=== PATIENT | female | born 1985 | race African-American/Black ===

== ENCOUNTER 2016-08-31 03:03 | Emergency (ER) | payer MEDICAID ==
[~2016-08-31] VITALS: Ht 167.6 cm; Wt 109.0 kg
[~2016-08-31 03:03] MED LIST: AMLO5TAB4 PO
[2016-08-31] MEDS ORDERED: KETOROLAC 60MG/2ML VIAL IM STA (05:29)
[2016-08-31] MEDS ORDERED: ONDANSETRON 4MG ODT PO STA (05:29)
[2016-08-31 05:56] LABS: BASOPHILS % 0.7 % (0.0-2.0); EOSINOPHILS % 2.7 % (0.0-5.0); HEMATOCRIT. 29.4 % (36.0-48.0); HEMOGLOBIN. 8.9 g/dL (12.0-16.0); LYMPHOCYTES % 51.4 % (20.0-50.0); MEAN CORPUSCULAR HEMOGLOBIN 19.1 pg (28.0-32.0); MEAN CORPUSCULAR VOLUME 63.2 fL (81.0-99.0); MEAN PLATELET VOLUME 8.4 fl (7.4-10.4); NEUTROPHILS % 38.2 % (40.0-76.0); PLATELET 187 x1000/uL (130-400); RED BLOOD CELL COUNT 4.65 mill/uL (4.2-5.4); RED CELL DISTRIBUTION WIDTH 20.9 % (11.6-14.6)
[2016-08-31 06:05] LABS: CARBON DIOXIDE 30 mEq/L (21-32); CHLORIDE 100 mEq/L (98-107); ETHANOL BLOOD 282 mg/dL
[2016-08-31] MEDS ORDERED: SODIUM CHLORIDE 0.9% 1,000 ML IV ONE (06:38)
[2016-08-31] MEDS ORDERED: POTASSIUM CHLORIDE 20MEQ TABLET SR PO ONE (07:00)
[2016-08-31 07:34] VITALS: BP 151/81
[2016-08-31 08:47] LABS: CLARITY URINE CLEAR (CLEAR); COLOR URINE YELLOW (YELLOW); GLUCOSE URINE NEGATIVE (NEGATIVE); KETONES URINE NEGATIVE (NEGATIVE); LEUKOCYTE ESTERASE URINE NEGATIVE (NEGATIVE); NITRITE URINE NEGATIVE (NEGATIVE); OCCULT BLOOD URINE TRACE (NEGATIVE); PH URINE 6.5 (4.5-8.0); PROTEIN URINE 3+ (NEGATIVE); SPECIFIC GRAVITY URINE 1.013 (1.005-1.030)
[2016-08-31 09:18] LABS: *AMPHETAMINES SCREEN URINE NEGATIVE (NEGATIVE); *BARBITURATES SCREEN URINE NEGATIVE (NEGATIVE); *BENZODIAZEPINES SCREEN URINE NEGATIVE (NEGATIVE); *COCAINE SCREEN URINE NEGATIVE (NEGATIVE); CANNABINOID URINE SCREEN NEGATIVE (NEGATIVE); METHADONE URINE SCREEN NEGATIVE (NEGATIVE); OPIATES URINE SCREEN NEGATIVE (NEGATIVE); PHENCYCLIDINE URINE SCREEN NEGATIVE (NEGATIVE)
== END 2016-08-31 09:22 | disposition home or self-care (01) ==
LOC: ER 04:35
DX: R07.89 Other chest pain (principal); F10.129 Alcohol abuse with intoxication, unspecified; I10 Essential (primary) hypertension
CPT/HCPCS: 36415; 71010; 80053; 80305; 81001; 85025; 93005; 96360; 96361; 96372; 99285; G0482; J1885; Q0162; Z7610; J7030

== ENCOUNTER 2016-12-30 20:53 | Inpatient (IN) | payer MEDICAID ==
[~2016-12-30] VITALS: Ht 172.7 cm; Wt 124.3 kg
[2016-12-31] MEDS ORDERED: ONDANSETRON HCL 4MG/2ML VIAL IV STA (00:45)
[2016-12-31] MEDS ORDERED: MORPHINE SULFATE 4 MG/ML CPJ (NOT FOR IM USE) IV STA (00:45)
[2016-12-31] MEDS ORDERED: SODIUM CHLORIDE 0.9% 1,000 ML IV ONE ×2 (00:45→03:36)
[2016-12-31 01:03] LABS: EOSINOPHILS % 0.4 % (0.0-5.0); HEMATOCRIT. 28.5 % (36.0-48.0); HEMOGLOBIN. 8.8 g/dL (12.0-16.0); LYMPHOCYTES % 16.6 % (20.0-50.0); MEAN CORPUSCULAR HEMOGLOBIN 22.9 pg (28.0-32.0); MEAN PLATELET VOLUME 7.3 fl (7.4-10.4); MONOCYTES % 5.6 % (2.0-8.0); NEUTROPHILS % 76.4 % (40.0-76.0); PLATELET 310 x1000/uL (130-400); RED BLOOD CELL COUNT 3.86 mill/uL (4.2-5.4); RED CELL DISTRIBUTION WIDTH 20.1 % (11.6-14.6)
[2016-12-31 01:09] LABS: CHLORIDE 99 mEq/L (98-107)
[2016-12-31 01:10] LABS: PROTHROMBIN TIME 10.7 sec (9.4-11.6)
[2016-12-31 01:17] LABS: CARBON DIOXIDE 24 mEq/L (21-32)
[2016-12-31 01:29] LABS: HCG SCREEN NEGATIVE
[2016-12-31 02:16] LABS: CLARITY URINE CLOUDY (CLEAR); COLOR URINE YELLOW (YELLOW); GLUCOSE URINE NEGATIVE (NEGATIVE); KETONES URINE 3+ (NEGATIVE); LEUKOCYTE ESTERASE URINE NEGATIVE (NEGATIVE); NITRITE URINE NEGATIVE (NEGATIVE); OCCULT BLOOD URINE 3+ (NEGATIVE); PH URINE 6.5 (4.5-8.0); PROTEIN URINE 3+ (NEGATIVE); SPECIFIC GRAVITY URINE 1.016 (1.005-1.030)
[2016-12-31] MEDS ORDERED: MORPHINE SULFATE 4 MG/ML CPJ (NOT FOR IM USE) IV SCH (03:36)
[2016-12-31] MEDS ORDERED: AZITHROMYCIN 500 MG TABLET PO SCH (03:45)
[2016-12-31] MEDS ORDERED: POTASSIUM CHLORIDE INJ 40 MEQ in DEXT 5% WATER 250 ML IV SCH (03:45)
[2016-12-31] MEDS ORDERED: CEFTRIAXONE SODIUM 250 MG/VIAL IM ONE (03:45)
[2016-12-31] MEDS ORDERED: CEFTRIAXONE 1 G PREMIX 50 ML IV SCH ×2 (03:45→09:00)
[2016-12-31] MEDS ORDERED: ONDANSETRON HCL 4MG/2ML VIAL IV SCH (03:45)
[2016-12-31] MEDS ORDERED: IOHEXOL-300 100 ML BOTTLE ONE (06:00)
[2016-12-31] MEDS ORDERED: SODIUM CHLORIDE 0.9% 10ML VIAL ONE (06:00)
[2016-12-31] MEDS ORDERED: LORAZEPAM 2MG/ML CPJ IV PRN (07:30)
[2016-12-31] MEDS ORDERED: IPRATROPIUM/ALBUTEROL 0.5-3(2.5)MG/3ML NEB INH PRN (07:30)
[2016-12-31] MEDS ORDERED: MAGNESIUM/ALUMINUM HYDROXIDE/SIMETHICONE 30ML UDC PO PRN (07:30)
[2016-12-31] MEDS ORDERED: ACETAMINOPHEN 325MG TABLET PO PRN (07:30)
[2016-12-31] MEDS ORDERED: GUAIFENESIN 200MG/10ML SUGAR FREE UDC PO PRN (07:30)
[2016-12-31] MEDS ORDERED: ZOLPIDEM TARTRATE 5MG TABLET PO PRN (07:30)
[2016-12-31] MEDS ORDERED: NA PHOS,M-B/NA PHOS,DI-BA ENEMA 118ML PR PRN (07:30)
[2016-12-31] MEDS ORDERED: DOCUSATE SODIUM 100MG CAPSULE PO PRN (07:30)
[2016-12-31] MEDS ORDERED: CLONIDINE 0.1MG TABLET PO PRN (07:30)
[2016-12-31] MEDS ORDERED: ONDANSETRON HCL 4MG/2ML VIAL IV PRN (07:30)
[2016-12-31] MEDS ORDERED: DIPHENHYDRAMINE 50MG/ML VIAL IV PRN (07:30)
[2016-12-31 08:00] VITALS: BP 150/104
[2016-12-31] MEDS ORDERED: HYDR25TA PO (09:13)
[2016-12-31] MEDS: PANTOPRAZOLE SODIUM 40 MG/VIAL IV SCH (09:53)
[2016-12-31] MEDS: METOPROLOL TARTRATE 25MG TABLET PO SCH ×2 (09:54→20:30)
[2016-12-31 10:17] LABS: *AMPHETAMINES SCREEN URINE NEGATIVE (NEGATIVE); *BARBITURATES SCREEN URINE NEGATIVE (NEGATIVE); *BENZODIAZEPINES SCREEN URINE NEGATIVE (NEGATIVE); *COCAINE SCREEN URINE NEGATIVE (NEGATIVE); CANNABINOID URINE SCREEN PRESUMTIVE POSITIVE (NEGATIVE); METHADONE URINE SCREEN NEGATIVE (NEGATIVE); OPIATES URINE SCREEN PRESUMTIVE POSITIVE (NEGATIVE); PHENCYCLIDINE URINE SCREEN NEGATIVE (NEGATIVE)
[2016-12-31 10:23] VITALS: BP 153/105
[2016-12-31] MEDS: KETOROLAC 15MG/ML VIAL IV PRN ×3 (11:58→23:48)
[2016-12-31 12:00] VITALS: BP 176/110
[2016-12-31] MEDS: SODIUM CHLORIDE 0.9% 1,000 ML IV SCH ×2 (12:02→20:52)
[2016-12-31 16:00] VITALS: BP 140/96
[2016-12-31 20:00] VITALS: BP 136/88
[2016-12-31 23:58] VITALS: BP 112/60
[2017-01-01 04:00] VITALS: BP 137/84
[2017-01-01] MEDS: SODIUM CHLORIDE 0.9% 1,000 ML IV SCH (05:43)
[2017-01-01] MEDS ORDERED: CEFTRIAXONE 1 G PREMIX 50 ML IV SCH (06:00)
[2017-01-01 07:24] LABS: BASOPHILS % 0.4 % (0.0-2.0); EOSINOPHILS % 0.5 % (0.0-5.0); HEMATOCRIT. 25.4 % (36.0-48.0); HEMOGLOBIN. 7.9 g/dL (12.0-16.0); LYMPHOCYTES % 20.7 % (20.0-50.0); MEAN CORPUSCULAR HEMOGLOBIN 23.4 pg (28.0-32.0); MEAN CORPUSCULAR VOLUME 75.3 fL (81.0-99.0); MEAN PLATELET VOLUME 7.9 fl (7.4-10.4); MONOCYTES % 4.8 % (2.0-8.0); NEUTROPHILS % 73.6 % (40.0-76.0); PLATELET 244 x1000/uL (130-400); RED BLOOD CELL COUNT 3.37 mill/uL (4.2-5.4); RED CELL DISTRIBUTION WIDTH 20.1 % (11.6-14.6)
[2017-01-01 08:00] VITALS: BP 151/85
[2017-01-01 08:33] LABS: CARBON DIOXIDE 27 mEq/L (21-32); CHLORIDE 102 mEq/L (98-107)
[2017-01-01] MEDS: PANTOPRAZOLE SODIUM 40 MG/VIAL IV SCH (08:48)
[2017-01-01] MEDS: METOPROLOL TARTRATE 25MG TABLET PO SCH (08:48)
[2017-01-01 08:58] VITALS: BP 151/85
[2017-01-01] MEDS: KETOROLAC 15MG/ML VIAL IV PRN (08:58)
[2017-02-08] MEDS ORDERED: FERR325T6 PO (08:14)
== END 2017-01-01 11:09 | disposition home or self-care (01) | DRG 241 ==
LOC: ER 21:07 → 8WST 12-31 03:37 → EDBEDREQ 12-31 03:42 → EDBEDREQTM 12-31 03:42 → EDBEDREQSVC 12-31 03:42 → ENRESERV 12-31 05:44
PROVIDERS: ADMIT Internal Medicine; ATTEND Internal Medicine
DX: K29.70 Gastritis, unspecified, without bleeding (principal); E44.1 Mild protein-calorie malnutrition; I10 Essential (primary) hypertension; N39.0 Urinary tract infection, site not specified; E66.01 Morbid (severe) obesity due to excess calories; E87.6 Hypokalemia; F12.10 Cannabis abuse, uncomplicated; Z79.899 Other long term (current) drug therapy; Z68.41 Body mass index [BMI] 40.0-44.9, adult
CPT/HCPCS: 36415; 74177; 80053; 80061; 80305; 81001; 81025; 83036; 83690; 84703; 85025; 85610; 93005; 93970; 96361; 96365; 96366; 96375; 96376; 99285; A4216; C9113; J0696; J1885; J2270; J2405; J3480; J7030; J7040; J7060; Q9967

== ENCOUNTER 2022-05-23 13:46 | Inpatient (IN) | payer MEDICAID, OTHER ==
[~2022-05-23] VITALS: Ht 170.2 cm; Wt 122.1 kg
[~2022-05-23 13:46] MED LIST changes: +AMLO10TA4 PO; -AMLO5TAB4 PO; +FERR134T2 PO; +FERR325T6 PO; +HYDR25TA PO; +KEPP500 PO; +LABE200T9 PO; +OXYC-662 MT
[2022-05-23] MEDS ORDERED: NITROGLYCERIN 0.4MG TABLET SL SL PRN (17:45)
[2022-05-23 18:25] LABS: BASOPHILS % 0.5 % (0.0-2.0); EOSINOPHILS % 0.5 % (0.0-5.0); LYMPHOCYTES % 17.2 % (20.0-50.0); MEAN CORPUSCULAR HEMOGLOBIN 30.7 pg (28.0-32.0); MEAN CORPUSCULAR VOLUME 93.3 fL (81.0-99.0); MEAN PLATELET VOLUME 6.2 fl (7.4-10.4); MONOCYTES % 4.5 % (2.0-8.0); NEUTROPHILS % 77.3 % (40.0-76.0); PLATELET 280 x1000/uL (130-400); RED BLOOD CELL COUNT 1.49 mill/uL (4.2-5.4)
[2022-05-23 18:30] LABS: HEMATOCRIT. 13.9 % (36.0-48.0); HEMOGLOBIN. 4.6 g/dL (12.0-16.0)
[2022-05-23 18:32] LABS: CHLORIDE 105 mEq/L (98-107)
[2022-05-23 18:43] LABS: HCG SCREEN NEGATIVE
[2022-05-23 18:45] LABS: D-DIMER 0.92 mg/L FEU (<0.50); INR 0.9; PARTIAL THROMBOPLASTIN TIME < 21.0 sec (23.4-31.0)
[2022-05-23] MEDS ORDERED: ONDANSETRON HCL 4MG/2ML INJ IV STA (18:52)
[2022-05-23] MEDS ORDERED: MORPHINE SULFATE 4 MG/ML CPJ (NOT FOR IM USE) IV STA (18:52)
[2022-05-23] MEDS ORDERED: CLONIDINE 0.2MG TABLET PO ONE (19:00)
[2022-05-24] VITALS (14 sets, daily range): BP systolic 107–177; BP diastolic 55–90
[2022-05-24] MEDS ORDERED: MORPHINE SULFATE 2 MG/ML CPJ (NOT FOR IM USE) IV NR (00:45)
[2022-05-24 02:52] LABS: BASOPHILS % 0.3 % (0.0-2.0); EOSINOPHILS % 0.6 % (0.0-5.0); LYMPHOCYTES % 20.6 % (20.0-50.0); MEAN CORPUSCULAR HEMOGLOBIN 30.9 pg (28.0-32.0); MEAN CORPUSCULAR VOLUME 93.9 fL (81.0-99.0); MEAN PLATELET VOLUME 6.6 fl (7.4-10.4); MONOCYTES % 4.1 % (2.0-8.0); NEUTROPHILS % 74.4 % (40.0-76.0); PLATELET 253 x1000/uL (130-400); RED BLOOD CELL COUNT 1.95 mill/uL (4.2-5.4); RED CELL DISTRIBUTION WIDTH 16.9 % (11.6-14.6)
[2022-05-24 02:58] LABS: HEMATOCRIT. 18.3 % (36.0-48.0)
[2022-05-24] MEDS ORDERED: ACETAMINOPHEN 325MG TABLET PO PRN (05:30)
[2022-05-24] MEDS: PANTOPRAZOLE 40MG DR TABLET PO SCH (08:34)
[2022-05-24] MEDS: IRON SUCROSE COMPLEX 100 MG/5 ML ML IV SCH (08:34)
[2022-05-24 09:33] LABS: BASOPHILS % 0.4 % (0.0-2.0); EOSINOPHILS % 0.4 % (0.0-5.0); LYMPHOCYTES % 16.6 % (20.0-50.0); MEAN CORPUSCULAR HEMOGLOBIN 30.6 pg (28.0-32.0); MEAN CORPUSCULAR VOLUME 91.5 fL (81.0-99.0); MEAN PLATELET VOLUME 6.7 fl (7.4-10.4); MONOCYTES % 3.3 % (2.0-8.0); NEUTROPHILS % 79.3 % (40.0-76.0); PLATELET 231 x1000/uL (130-400); RED BLOOD CELL COUNT 2.18 mill/uL (4.2-5.4); RED CELL DISTRIBUTION WIDTH 16.7 % (11.6-14.6)
[2022-05-24 09:36] LABS: HEMATOCRIT. 19.9 % (36.0-48.0); HEMOGLOBIN. 6.7 g/dL (12.0-16.0)
[2022-05-24] MEDS ORDERED: NALOXONE HCL 0.4MG/ML VIAL IV PRN (12:45)
[2022-05-24] MEDS: TRAMADOL 50MG TABLET PO PRN ×2 (13:03→18:45)
[2022-05-24 23:39] LABS: HEMATOCRIT 22.5 % (36.0-48.0); HEMOGLOBIN 7.7 g/dL (12.0-16.0)
[2022-05-25] VITALS: BP 162/108
[2022-05-25] MEDS: TRAMADOL 50MG TABLET PO PRN ×4 (00:05→21:17)
[2022-05-25] MEDS: HYDRALAZINE HCL 50MG TABLET PO SCH ×3 (00:36→13:09)
[2022-05-25 04:00] VITALS: BP 149/80
[2022-05-25 08:00] VITALS: BP 157/90
[2022-05-25] MEDS: PANTOPRAZOLE 40MG DR TABLET PO SCH (08:49)
[2022-05-25] MEDS: IRON SUCROSE COMPLEX 100 MG/5 ML ML IV SCH (08:49)
[2022-05-25 11:16] LABS: CLARITY URINE CLEAR (CLEAR); COLOR URINE YELLOW (YELLOW); KETONES URINE NEGATIVE (NEGATIVE); LEUKOCYTE ESTERASE URINE NEGATIVE (NEGATIVE); NITRITE URINE NEGATIVE (NEGATIVE); OCCULT BLOOD URINE 3+ (NEGATIVE); PH URINE 5.5 (4.5-8.0); PROTEIN URINE NEGATIVE (NEGATIVE); SPECIFIC GRAVITY URINE 1.011 (1.005-1.030); UROBILINOGEN URINE 0.2 E.U./dL (0.2-1.0)
[2022-05-25 12:00] VITALS: BP 150/81
[2022-05-25 16:00] VITALS: BP 187/100
[2022-05-25] MEDS ORDERED: ESTROGENS,CONJUGATED 25MG/VIAL IV NR (17:00)
[2022-05-25 17:44] LABS: HEMATOCRIT 24.3 % (36.0-48.0); HEMOGLOBIN 8.1 g/dL (12.0-16.0)
[2022-05-25 21:00] VITALS: BP 172/94
[2022-05-25] MEDS: HYDRALAZINE HCL 100MG TABLET PO SCH (21:16)
[2022-05-25] MEDS: DOCUSATE SODIUM 250MG CAPSULE PO SCH (21:41)
[2022-05-26] VITALS: BP 134/53
[2022-05-26 05:00] VITALS: BP 162/105
[2022-05-26] MEDS: HYDRALAZINE HCL 100MG TABLET PO SCH ×3 (05:13→20:54)
[2022-05-26] MEDS: TRAMADOL 50MG TABLET PO PRN ×3 (05:17→20:54)
[2022-05-26 07:49] VITALS: BP 155/98
[2022-05-26] MEDS: IRON SUCROSE COMPLEX 100 MG/5 ML ML IV SCH (09:08)
[2022-05-26] MEDS: PANTOPRAZOLE 40MG DR TABLET PO SCH (09:08)
[2022-05-26] MEDS: DOCUSATE SODIUM 250MG CAPSULE PO SCH ×2 (09:08→17:00)
[2022-05-26] MEDS ORDERED: HYDR100T26 PO (10:48)
[2022-05-26] MEDS ORDERED: ACETAMINOPHEN 325MG TABLET PO PRN (11:00)
[2022-05-26] MEDS: AMLODIPINE 10MG TABLET PO SCH (11:22)
[2022-05-26 12:00] VITALS: BP 182/90
[2022-05-26] MEDS: LABETALOL HCL 200MG TABLET PO SCH ×2 (13:28→20:54)
[2022-05-26] MEDS: ONDANSETRON HCL 4MG/2ML INJ IV PRN (14:48)
[2022-05-26 16:00] VITALS: BP 159/100
[2022-05-26] MEDS ORDERED: CLONIDINE 0.1MG TABLET PO NR (16:45)
[2022-05-26 20:00] VITALS: BP 166/91
[2022-05-26] MEDS ORDERED: LABETALOL HCL 200MG TABLET PO SCH (21:00)
[2022-05-26] MEDS: CLONIDINE 0.1MG TABLET PO PRN (23:53)
[2022-05-27] VITALS: BP 169/94
[2022-05-27] MEDS: TRAMADOL 50MG TABLET PO PRN ×2 (03:08→09:28)
[2022-05-27 04:00] VITALS: BP 164/101
[2022-05-27] MEDS: HYDRALAZINE HCL 100MG TABLET PO SCH ×2 (05:36→13:34)
[2022-05-27] MEDS: CLONIDINE 0.1MG TABLET PO PRN (05:37)
[2022-05-27] MEDS: ONDANSETRON HCL 4MG/2ML INJ IV PRN (05:37)
[2022-05-27 08:00] VITALS: BP 156/81
[2022-05-27] MEDS: DOCUSATE SODIUM 250MG CAPSULE PO SCH (09:19)
[2022-05-27] MEDS: LABETALOL HCL 200MG TABLET PO SCH (09:19)
[2022-05-27] MEDS: PANTOPRAZOLE 40MG DR TABLET PO SCH (09:19)
[2022-05-27] MEDS: AMLODIPINE 10MG TABLET PO SCH (09:20)
[2022-05-27] MEDS ORDERED: FERR134T2 PO (11:51)
[2022-05-27 12:00] VITALS: BP 159/95
[2022-05-27] MEDS ORDERED: HYDR-4001 MT (14:55)
[2022-05-27 15:20] VITALS: BP 159/95
[2022-05-27 17:05] LABS: BASOPHILS % 0.3 % (0.0-2.0); EOSINOPHILS % 0.9 % (0.0-5.0); HEMOGLOBIN. 8.1 g/dL (12.0-16.0); LYMPHOCYTES % 8.8 % (20.0-50.0); MEAN CORPUSCULAR HEMOGLOBIN 29.8 pg (28.0-32.0); MEAN CORPUSCULAR VOLUME 91.8 fL (81.0-99.0); MEAN PLATELET VOLUME 6.7 fl (7.4-10.4); MONOCYTES % 3.4 % (2.0-8.0); NEUTROPHILS % 86.6 % (40.0-76.0); PLATELET 188 x1000/uL (130-400); RED BLOOD CELL COUNT 2.72 mill/uL (4.2-5.4); RED CELL DISTRIBUTION WIDTH 17.2 % (11.6-14.6)
[2022-05-27 17:14] LABS: CHLORIDE 97 mEq/L (98-107)
== END 2022-05-27 18:20 | disposition home or self-care (01) | DRG 532 ==
LOC: ER 13:46 → MICUSO 21:24 → 7EST 05-24 01:04
PROVIDERS: ADMIT Internal Medicine; ATTEND Internal Medicine
PROC: 30233N1 Transfusion of Nonautologous Red Blood Cells into Peripheral Vein, Percutaneous Approach (ICD-10-PCS; principal; 2022-05-23)
DX: N92.0 Excessive and frequent menstruation with regular cycle (principal); N17.0 Acute kidney failure with tubular necrosis; E44.0 Moderate protein-calorie malnutrition; D64.9 Anemia, unspecified; I10 Essential (primary) hypertension; I16.0 Hypertensive urgency; E66.9 Obesity, unspecified; G40.909 Epilepsy, unspecified, not intractable, without status epilepticus; Z68.41 Body mass index [BMI] 40.0-44.9, adult; D72.829 Elevated white blood cell count, unspecified; Z98.891 History of uterine scar from previous surgery
CPT/HCPCS: 36415; 71045; 78582; 80048; 80053; 81003; 83880; 84145; 84484; 84703; 85014; 85018; 85025; 85379; 86850; 86900; 86920; 93970; 99285; A9558; C1893; J1410; J2270; J2405; P9016

== ENCOUNTER 2023-01-16 16:23 | Emergency (ER) | payer MEDICAID, OTHER ==
[~2023-01-16] VITALS: Ht 170.2 cm; Wt 100.0 kg
[~2023-01-16 16:23] MED LIST changes: +GABA-532 PO; +HYDR-4001 MT; +HYDR100T26 PO; -HYDR25TA PO; -OXYC-662 MT
[2023-01-16 16:35] VITALS: O2SAT 99
[2023-01-16] MEDS ORDERED: HYDROCODONE/ACETAMINOPHEN 5/325MG TABLET PO ONE (21:30)
[2023-01-16 21:35] LABS: CHLORIDE 105 mEq/L (98-107); INDEX HEMOLYSI 1 (1-3); INDEX ICTERIC 1 (1-4); INDEX LIPEMIC 1 (1-3); POTASSIUM 3.5 mEq/L (3.5-5.1); SODIUM 137 mEq/L (136-145)
[2023-01-16 21:44] LABS: BASOPHILS % 0.5 % (0.0-2.0); EOSINOPHILS % 0.5 % (0.0-5.0); HEMATOCRIT. 29.7 % (36.0-48.0); HEMOGLOBIN. 9.8 g/dL (12.0-16.0); LYMPHOCYTES % 17.7 % (20.0-50.0); MEAN CORPUSCULAR HEMOGLOBIN 30.3 pg (28.0-32.0); MEAN CORPUSCULAR HGB CONC 33.2 g/dL (31.0-37.0); MEAN CORPUSCULAR VOLUME 91.3 fL (81.0-99.0); MEAN PLATELET VOLUME 7.8 fl (7.4-10.4); MONOCYTES % 5.6 % (2.0-8.0); NEUTROPHILS % 75.7 % (40.0-76.0); PLATELET 168 x1000/uL (130-400); RED BLOOD CELL COUNT 3.25 mill/uL (4.2-5.4); RED CELL DISTRIBUTION WIDTH 19.7 % (11.6-14.6); WHITE BLOOD COUNT 13.6 x1000/uL (4.5-11.0)
[2023-01-16 21:45] LABS: ALANINE AMINOTRANSFERASE 33 IU/L (13-61); ALBUMIN 3.2 g/dL (3.4-5.0); ASPARTATE AMINOTRANSFERASE 73 IU/L (15-37); BILIRUBIN TOTAL 0.7 mg/dL (0.1-1.0); CALCIUM 8.6 mg/dL (8.5-10.1); CARBON DIOXIDE 23 mEq/L (21-32); CREATININE 2.1 mg/dL (0.6-1.3); GLUCOSE 93 mg/dL (70-105); PROTEIN TOTAL 7.8 g/dL (6.0-8.3); UREA NITROGEN BLOOD 26 mg/dL (7-21)
[2023-01-16] MEDS ORDERED: HYDROCODONE/ACETAMINOPHEN 5/325MG TABLET PO NR (23:45)
[2023-01-16] MEDS ORDERED: IBUP-2028 MT (23:53)
[2023-01-16] MEDS ORDERED: TOPUD MT (23:53)
[2023-01-17 00:46] VITALS: BP 145/98
[2023-01-17 00:47] VITALS: PULSE 98; RESP 18; TEMP 98.3
== END 2023-01-17 00:49 | disposition home or self-care (01) ==
LOC: ER 16:23
DX: I87.2 Venous insufficiency (chronic) (peripheral) (principal); M71.21 Synovial cyst of popliteal space [Baker], right knee; D64.9 Anemia, unspecified; I10 Essential (primary) hypertension; Z98.890 Other specified postprocedural states; Z79.899 Other long term (current) drug therapy
CPT/HCPCS: 36415; 73630; 80053; 81025; 85025; 93971; 99284

== ENCOUNTER 2023-11-17 20:18 | Inpatient (IN) | payer OTHER ==
[~2023-11-17] VITALS: Ht 172.7 cm; Wt 82.1 kg
[~2023-11-17 20:18] MED LIST changes: -FERR134T2 PO; -HYDR-4001 MT; -KEPP500 PO
[2023-11-17 21:46] LABS: CHLORIDE 106 mEq/L (98-107); POTASSIUM 3.7 mEq/L (3.5-5.1); SODIUM 137 mEq/L (136-145)
[2023-11-17 21:47] LABS: CALCIUM 9.2 mg/dL (8.7-10.4); CARBON DIOXIDE 22 mEq/L (21-32)
[2023-11-17 21:49] LABS: EOSINOPHILS % 0.2 % (0.0-5.0); LYMPHOCYTES % 8.4 % (20.0-50.0); MEAN CORPUSCULAR HGB CONC 32.6 g/dL (31.0-37.0); MEAN CORPUSCULAR VOLUME 101.4 fL (81.0-99.0); MEAN PLATELET VOLUME 8.7 fl (7.4-10.4); MONOCYTES % 4.3 % (2.0-8.0); NEUTROPHILS % 86.1 % (40.0-76.0); PLATELET 168 x1000/uL (130-400); RED BLOOD CELL COUNT 2.08 mill/uL (4.2-5.4); RED CELL DISTRIBUTION WIDTH 22.4 % (11.6-14.6); WHITE BLOOD COUNT 12.1 x1000/uL (4.5-11.0)
[2023-11-17 21:50] LABS: DIFFERENTIAL COMMENT 1
[2023-11-17 21:52] LABS: GLUCOSE 112 mg/dL (70-105); HEMOGLOBIN. 6.9 g/dL (12.0-16.0); UREA NITROGEN BLOOD 19 mg/dL (9-23)
[2023-11-17 21:53] LABS: ADD RBC MORPHOLOGY YES; HEMATOCRIT. 21.1 % (36.0-48.0); TROPONIN I HIGH SENSITIVITY 24 ng/L (3.0-34)
[2023-11-17 22:33] LABS: PLATELET ESTIMATE NORMAL
[2023-11-17 22:34] LABS: ANISOCYTOSIS 2+
[2023-11-17 22:35] LABS: HYPOCHROMASIA 1+
[2023-11-17] MEDS: ACETAMINOPHEN 1000MG/100ML 100 ML IV NR (23:12)
[2023-11-18] MEDS: MORPHINE SULFATE 4 MG/ML INJ (FOR IV/IM USE) IV ONE (01:17)
[2023-11-18] MEDS: SODIUM CHLORIDE 0.9% 500 ML IV ONE (02:20)
[2023-11-18 02:29] LABS: ALANINE AMINOTRANSFERASE 18 IU/L (10-49); ALBUMIN 3.7 g/dL (3.2-4.8); ASPARTATE AMINOTRANSFERASE 34 IU/L (<34); BILIRUBIN DIRECT 0.1 mg/dL (<=3.0); BILIRUBIN TOTAL 0.3 mg/dL (0.1-1.0); PROTEIN TOTAL 6.9 g/dL (6.0-8.3)
[2023-11-18] MEDS: LABETALOL HCL 200MG TABLET PO NR (02:31)
[2023-11-18] MEDS: DIPHENHYDRAMINE 50MG/ML VIAL IV ONE (03:59)
[2023-11-18] MEDS: KETOROLAC 15MG/ML VIAL IV ONE (05:36)
[2023-11-18] MEDS: ONDANSETRON HCL 4MG/2ML INJ IV ONE (05:36)
[2023-11-18 06:22] LABS: HEMATOCRIT 24.6 % (36.0-48.0)
[2023-11-18] MEDS: HYDRALAZINE 20MG/ML VIAL IV NR (08:50)
[2023-11-18] MEDS: HYDRALAZINE 20MG/ML VIAL IV ONE (08:51)
[2023-11-18] MEDS ORDERED: NALOXONE HCL 0.4MG/ML VIAL IV PRN (10:45)
[2023-11-18] MEDS: ONDANSETRON HCL 4MG/2ML INJ IV PRN (10:53)
[2023-11-18] MEDS: MORPHINE SULFATE 2 MG/ML INJ (NOT FOR IM USE) IV PRN ×2 (10:54→22:49)
[2023-11-18] MEDS ORDERED: ACETAMINOPHEN 325MG TABLET PO PRN (17:00)
[2023-11-18] MEDS ORDERED: CLONIDINE 0.1MG TABLET PO PRN (17:00)
[2023-11-18] MEDS ORDERED: CEFTRIAXONE 1GM/50ML 50 ML IV SCH (17:00)
[2023-11-18] MEDS ORDERED: ONDANSETRON HCL 4MG/2ML INJ IV PRN (17:00)
[2023-11-18] MEDS ORDERED: ZOLPIDEM TARTRATE 5MG TABLET PO PRN (17:00)
[2023-11-18] MEDS ORDERED: IPRATROPIUM/ALBUTEROL 0.5-3(2.5)MG/3ML NEB NEB PRN (17:00)
[2023-11-18] MEDS: SODIUM CHLORIDE 0.9% 1,000 ML IV SCH (17:27)
[2023-11-18] MEDS: GABAPENTIN 300MG CAPSULE PO SCH (17:28)
[2023-11-18] MEDS: PANTOPRAZOLE 40MG DR TABLET PO SCH (17:28)
[2023-11-18] MEDS: CEFTRIAXONE 1GM/50ML 50 ML IV SCH (17:28)
[2023-11-18] MEDS: LABETALOL HCL 200MG TABLET PO SCH (18:50)
[2023-11-18] MEDS: METRONIDAZOLE 500MG TABLET PO SCH (21:00)
[2023-11-18] MEDS: HYDRALAZINE HCL 100MG TABLET PO SCH (22:00)
[2023-11-18 22:24] LABS: CREATINE KINASE MB FRACTION 0.7 ng/mL (0.5-3.6)
[2023-11-18 23:53] VITALS: BP 130/80; PULSE 75; RESP 18; TEMP 36.8072
[2023-11-19] VITALS (10 sets, daily range): BP systolic 85–149; BP diastolic 42–80; PULSE 43–87; RESP 17–43; TEMP 36.114–37.11408; O2SAT 95–100
[2023-11-19 06:44] LABS: MEAN CORPUSCULAR HGB CONC 32.9 g/dL (31.0-37.0); MEAN CORPUSCULAR VOLUME 100.3 fL (81.0-99.0); MEAN PLATELET VOLUME 8.5 fl (7.4-10.4); PLATELET 112 x1000/uL (130-400); RED BLOOD CELL COUNT 1.98 mill/uL (4.2-5.4); RED CELL DISTRIBUTION WIDTH 22.3 % (11.6-14.6); WHITE BLOOD COUNT 7.5 x1000/uL (4.5-11.0)
[2023-11-19 06:50] LABS: CALCIUM 8.5 mg/dL (8.7-10.4); CHLORIDE 104 mEq/L (98-107); POTASSIUM 3.7 mEq/L (3.5-5.1); SODIUM 135 mEq/L (136-145)
[2023-11-19 06:51] LABS: CARBON DIOXIDE 25 mEq/L (21-32)
[2023-11-19 06:52] LABS: CREATINE KINASE MB FRACTION < 0.5 ng/mL (0.5-3.6); TROPONIN I HIGH SENSITIVITY 17 ng/L (3.0-34)
[2023-11-19 06:56] LABS: CREATININE 2.3 mg/dL (0.6-1.0); GLUCOSE 144 mg/dL (70-105); UREA NITROGEN BLOOD 24 mg/dL (9-23)
[2023-11-19 06:57] LABS: CREATINE KINASE 23 IU/L (34-145)
[2023-11-19 07:52] LABS: DIFFERENTIAL COMMENT 1
[2023-11-19 07:55] LABS: HEMATOCRIT. 19.8 % (36.0-48.0); HEMOGLOBIN. 6.5 g/dL (12.0-16.0)
[2023-11-19] MEDS: AMLODIPINE 10MG TABLET PO SCH (10:28)
[2023-11-19 10:40] LABS: CARBON DIOXIDE 23 mEq/L (21-32); CHLORIDE 105 mEq/L (98-107); POTASSIUM 4.3 mEq/L (3.5-5.1); SODIUM 134 mEq/L (136-145)
[2023-11-19 10:41] LABS: CALCIUM 8.3 mg/dL (8.7-10.4)
[2023-11-19 10:46] LABS: CREATININE 2.6 mg/dL (0.6-1.0); GLUCOSE 108 mg/dL (70-105); UREA NITROGEN BLOOD 22 mg/dL (9-23)
[2023-11-19 10:47] LABS: ALANINE AMINOTRANSFERASE 12 IU/L (10-49)
[2023-11-19 10:48] LABS: ALBUMIN 3.2 g/dL (3.2-4.8); ASPARTATE AMINOTRANSFERASE 19 IU/L (<34); BILIRUBIN TOTAL 0.2 mg/dL (0.1-1.0); PROTEIN TOTAL 5.9 g/dL (6.0-8.3)
[2023-11-19] MEDS: DIPHENHYDRAMINE 50MG/ML VIAL IV NR (11:40)
[2023-11-19 16:26] LABS: PLATELET ESTIMATE NORMAL
[2023-11-19 17:53] LABS: EOSINOPHILS % 0.6 % (0.0-5.0); HEMATOCRIT. 23.6 % (36.0-48.0); HEMOGLOBIN. 7.7 g/dL (12.0-16.0); LYMPHOCYTES % 13.4 % (20.0-50.0); MEAN CORPUSCULAR HEMOGLOBIN 32.2 pg (28.0-32.0); MEAN CORPUSCULAR HGB CONC 32.6 g/dL (31.0-37.0); MEAN CORPUSCULAR VOLUME 98.9 fL (81.0-99.0); MEAN PLATELET VOLUME 8.1 fl (7.4-10.4); MONOCYTES % 6.6 % (2.0-8.0); NEUTROPHILS % 78.4 % (40.0-76.0); PLATELET 104 x1000/uL (130-400); RED BLOOD CELL COUNT 2.39 mill/uL (4.2-5.4); RED CELL DISTRIBUTION WIDTH 23.1 % (11.6-14.6); WHITE BLOOD COUNT 10.2 x1000/uL (4.5-11.0)
[2023-11-19 17:56] LABS: DIFFERENTIAL COMMENT 1
[2023-11-19 21:01] LABS: CLARITY URINE CLOUDY (CLEAR); COLOR URINE ORANGE (YELLOW)
[2023-11-19 21:02] LABS: GLUCOSE URINE NEGATIVE (NEGATIVE); KETONES URINE NEGATIVE (NEGATIVE); LEUKOCYTE ESTERASE URINE 2+ (NEGATIVE); NITRITE URINE NEGATIVE (NEGATIVE); OCCULT BLOOD URINE 3+ (NEGATIVE); PROTEIN URINE 2+ (NEGATIVE); UROBILINOGEN URINE 0.2 E.U./dL (0.2-1.0)
[2023-11-19 21:15] LABS: BACTERIA URINE 3+; RBC URINE TNTC /hpf (0-2); SQUAMOUS EPITHELIAL CELL URINE 1+ /lpf (RARE/1+)
[2023-11-19 21:17] LABS: WBC URINE 25-50 /hpf (0-2)
[2023-11-20] VITALS: BP 120/70; PULSE 74; RESP 20; TEMP 36.28068; O2SAT 98
[2023-11-20 04:00] VITALS: BP 132/82; PULSE 83; RESP 18; TEMP 36.33624; O2SAT 96
[2023-11-20 06:56] LABS: BASOPHILS % 0.3 % (0.0-2.0); EOSINOPHILS % 0.7 % (0.0-5.0); HEMATOCRIT. 24.2 % (36.0-48.0); LYMPHOCYTES % 16.9 % (20.0-50.0); MEAN CORPUSCULAR HEMOGLOBIN 32.6 pg (28.0-32.0); MEAN CORPUSCULAR HGB CONC 33.1 g/dL (31.0-37.0); MEAN CORPUSCULAR VOLUME 98.2 fL (81.0-99.0); MEAN PLATELET VOLUME 8.4 fl (7.4-10.4); NEUTROPHILS % 76.1 % (40.0-76.0); PLATELET 113 x1000/uL (130-400); RED BLOOD CELL COUNT 2.46 mill/uL (4.2-5.4); RED CELL DISTRIBUTION WIDTH 23.3 % (11.6-14.6)
[2023-11-20 07:07] LABS: POTASSIUM 4.3 mEq/L (3.5-5.1)
[2023-11-20 07:08] LABS: CALCIUM 8.4 mg/dL (8.7-10.4)
[2023-11-20 07:11] LABS: CREATININE 2.6 mg/dL (0.6-1.0)
[2023-11-20 07:42] LABS: DIFFERENTIAL COMMENT 1
[2023-11-20 08:00] VITALS: BP 161/99; PULSE 60; RESP 17; TEMP 36.3918; O2SAT 96
[2023-11-20 12:00] VITALS: BP 133/86; PULSE 67; RESP 17; TEMP 36.50292; O2SAT 96
[2023-11-20] MEDS ORDERED: TRANEXAMIC ACID 1,000MG/10ML IV ONE ×2 (12:45→13:45)
[2023-11-20] MEDS ORDERED: NON FORMULARY PATIENT HOME MED XX SCH ×2 (13:00→13:45)
[2023-11-20] MEDS ORDERED: TRANEXAMIC ACID 1000MG PREMIX 100 ML IV SCH (15:00)
[2023-11-20] MEDS: TRANEXAMIC ACID 1000MG PREMIX 100 ML IV SCH (15:06)
[2023-11-20] MEDS: IRON SUCROSE COMPLEX 100 MG/5 ML ML IV SCH (15:07)
[2023-11-20 16:00] VITALS: BP 116/70; PULSE 67; RESP 17; TEMP 36.61404; O2SAT 96
[2023-11-20 17:21] LABS: INR 0.9; PROTHROMBIN TIME 10.3 sec (9.6-11.0)
[2023-11-20 20:00] VITALS: BP 145/94; PULSE 84; RESP 20; TEMP 36.44736; O2SAT 94
[2023-11-21] VITALS: BP 131/74; PULSE 79; RESP 20; TEMP 35.5584; O2SAT 96
[2023-11-21 04:00] VITALS: BP 114/65; PULSE 73; RESP 20; TEMP 35.61396; O2SAT 97
[2023-11-21 08:00] VITALS: BP 139/82; PULSE 84; RESP 15; TEMP 36.6696; O2SAT 96
[2023-11-21 09:14] LABS: BASOPHILS % 0.4 % (0.0-2.0); EOSINOPHILS % 0.9 % (0.0-5.0); HEMATOCRIT. 26.1 % (36.0-48.0); HEMOGLOBIN. 8.5 g/dL (12.0-16.0); LYMPHOCYTES % 13.2 % (20.0-50.0); MEAN CORPUSCULAR HEMOGLOBIN 32.1 pg (28.0-32.0); MEAN CORPUSCULAR HGB CONC 32.5 g/dL (31.0-37.0); MEAN CORPUSCULAR VOLUME 98.9 fL (81.0-99.0); MEAN PLATELET VOLUME 8.5 fl (7.4-10.4); MONOCYTES % 7.2 % (2.0-8.0); NEUTROPHILS % 78.3 % (40.0-76.0); PLATELET 123 x1000/uL (130-400); RED BLOOD CELL COUNT 2.64 mill/uL (4.2-5.4); RED CELL DISTRIBUTION WIDTH 23.2 % (11.6-14.6); WHITE BLOOD COUNT 8.8 x1000/uL (4.5-11.0)
[2023-11-21 09:15] LABS: DIFFERENTIAL COMMENT 1
[2023-11-21 09:18] LABS: ADD RBC MORPHOLOGY YES
[2023-11-21 09:21] LABS: POTASSIUM 4.4 mEq/L (3.5-5.1)
[2023-11-21 09:22] LABS: CALCIUM 8.9 mg/dL (8.7-10.4)
[2023-11-21 09:27] LABS: CREATININE 2.3 mg/dL (0.6-1.0)
[2023-11-21 12:00] VITALS: BP 145/93; PULSE 77; RESP 15; TEMP 36.00288; O2SAT 96
[2023-11-21 16:00] VITALS: BP 134/70; PULSE 89; RESP 17; TEMP 36.6696; O2SAT 97
[2023-11-21 17:22] LABS: ANISOCYTOSIS 3+; PLATELET ESTIMATE SLIGHTLY DECREASED
[2023-11-21 20:00] VITALS: PULSE 75; RESP 20; TEMP 36.44736; O2SAT 100
[2023-11-22] VITALS: BP 119/119; PULSE 79; RESP 20; TEMP 36.55848; O2SAT 97
[2023-11-22 04:00] VITALS: BP 108/67; PULSE 78; RESP 20; TEMP 36.114; O2SAT 98
[2023-11-22 06:44] LABS: CALCIUM 8.5 mg/dL (8.7-10.4)
[2023-11-22 06:49] LABS: CREATININE 2.4 mg/dL (0.6-1.0)
[2023-11-22 06:50] LABS: BASOPHILS % 0.3 % (0.0-2.0); EOSINOPHILS % 1.1 % (0.0-5.0); HEMATOCRIT. 22.1 % (36.0-48.0); HEMOGLOBIN. 7.3 g/dL (12.0-16.0); MEAN CORPUSCULAR HEMOGLOBIN 32.5 pg (28.0-32.0); MEAN CORPUSCULAR VOLUME 98.5 fL (81.0-99.0); MEAN PLATELET VOLUME 8.2 fl (7.4-10.4); MONOCYTES % 9.4 % (2.0-8.0); NEUTROPHILS % 73.2 % (40.0-76.0); PLATELET 112 x1000/uL (130-400); RED BLOOD CELL COUNT 2.24 mill/uL (4.2-5.4); RED CELL DISTRIBUTION WIDTH 22.9 % (11.6-14.6); WHITE BLOOD COUNT 7.2 x1000/uL (4.5-11.0)
[2023-11-22 06:55] LABS: ADD RBC MORPHOLOGY NO; DIFFERENTIAL COMMENT 1
[2023-11-22 08:00] VITALS: BP 134/86; PULSE 77; RESP 18; TEMP 36.33624; O2SAT 99
[2023-11-22 11:12] LABS: HEMATOCRIT 27.1 % (36.0-48.0); HEMOGLOBIN 8.7 g/dL (12.0-16.0)
[2023-11-22 12:00] VITALS: BP 145/97; PULSE 82; RESP 18; TEMP 36.89184; O2SAT 98
[2023-11-22 12:35] VITALS: RESP 18
[2023-11-22] MEDS ORDERED: HYDR-4001 MT (14:30)
[2023-11-22] MEDS ORDERED: TRAN650T5 MT (14:30)
[2023-11-22 14:46] VITALS: BP 145/97; PULSE 82; TEMP 98.4; O2SAT 98
== END 2023-11-22 15:20 | disposition home or self-care (01) | DRG 810 ==
LOC: ER 20:18 → 5WST 11-18 02:46 → EDBEDREQ 11-18 02:49 → 7EST 11-18 23:00
PROVIDERS: ADMIT Internal Medicine; ATTEND Internal Medicine
PROC: 30233N1 Transfusion of Nonautologous Red Blood Cells into Peripheral Vein, Percutaneous Approach (ICD-10-PCS; principal; 2023-11-18)
DX: N99.820 Postprocedural hemorrhage of a genitourinary system organ or structure following a genitourinary system procedure (principal); K85.90 Acute pancreatitis without necrosis or infection, unspecified; N17.9 Acute kidney failure, unspecified; E11.22 Type 2 diabetes mellitus with diabetic chronic kidney disease; D25.9 Leiomyoma of uterus, unspecified; D62 Acute posthemorrhagic anemia; R00.0 Tachycardia, unspecified; I16.0 Hypertensive urgency; N92.0 Excessive and frequent menstruation with regular cycle; F17.210 Nicotine dependence, cigarettes, uncomplicated; Y83.6 Removal of other organ (partial) (total) as the cause of abnormal reaction of the patient, or of later complication, without mention of misadventure at the time of the procedure; I12.9 Hypertensive chronic kidney disease with stage 1 through stage 4 chronic kidney disease, or unspecified chronic kidney disease; N18.30 Chronic kidney disease, stage 3 unspecified; Z98.891 History of uterine scar from previous surgery; Z90.710 Acquired absence of both cervix and uterus; Z82.49 Family history of ischemic heart disease and other diseases of the circulatory system; Z79.899 Other long term (current) drug therapy; Z90.722 Acquired absence of ovaries, bilateral; Y92.89 Other specified places as the place of occurrence of the external cause
CPT/HCPCS: 36415; 71045; 74177; 80048; 80053; 80076; 80320; 81003; 82550; 82553; 83036; 84484; 85014; 85018; 85025; 86850; 86900; 86920; 93005; 99291; C1893; J0360; J0696; J1200; J1885; J2270; J2405; J7030; P9016; G0480; J0131

== ENCOUNTER 2024-08-23 18:21 | Emergency (ER) | payer OTHER ==
[~2024-08-23] VITALS: Ht 167.6 cm; Wt 91.0 kg
[~2024-08-23 18:21] MED LIST changes: +AMLO-905 PO; -AMLO10TA4 PO; +FOLI-43 MT; +GABA-1180 PO; -GABA-532 PO; +HYDR100T11 PO; -HYDR100T26 PO; +PROT40 MT
[2024-08-23 18:37] VITALS: TEMP 36.7; O2SAT 100
[2024-08-23] MEDS: IBUPROFEN 600MG TABLET PO SCH (21:15)
[2024-08-23] MEDS: TRAMADOL 50MG TABLET PO SCH (21:15)
[2024-08-23 21:20] LABS: DIFFERENTIAL COMMENT 1; HEMATOCRIT. 23.5 % (36.0-48.0); HEMOGLOBIN. 7.8 g/dL (12.0-16.0); MEAN CORPUSCULAR HEMOGLOBIN 34.9 pg (28.0-32.0); MEAN CORPUSCULAR HGB CONC 33.1 g/dL (31.0-37.0); MEAN CORPUSCULAR VOLUME 105.3 fL (81.0-99.0); PLATELET 196 x1000/uL (130-400); RED BLOOD CELL COUNT 2.23 mill/uL (4.2-5.4); RED CELL DISTRIBUTION WIDTH 19.8 % (11.6-14.6); WHITE BLOOD COUNT 10.2 x1000/uL (4.5-11.0)
[2024-08-23 21:40] LABS: POTASSIUM 3.1 mEq/L (3.5-5.1)
[2024-08-23 21:41] LABS: CALCIUM 8.2 mg/dL (8.7-10.4)
[2024-08-23 21:43] LABS: ANISOCYTOSIS 1+; PLATELET ESTIMATE NORMAL
[2024-08-23 21:46] LABS: CREATININE 2.6 mg/dL (0.6-1.0)
[2024-08-24] MEDS ORDERED: AMOX1TAB16 MT (00:31)
[2024-08-24] MEDS ORDERED: TRAM50TA3 MT (00:31)
[2024-08-24 00:45] VITALS: BP 153/104; PULSE 91; RESP 18; O2SAT 98
== END 2024-08-24 00:51 | disposition home or self-care (01) ==
LOC: ER 18:21
DX: L03.116 Cellulitis of left lower limb (principal); R60.0 Localized edema; D64.9 Anemia, unspecified; I12.9 Hypertensive chronic kidney disease with stage 1 through stage 4 chronic kidney disease, or unspecified chronic kidney disease; N18.9 Chronic kidney disease, unspecified; Z98.890 Other specified postprocedural states; Z90.710 Acquired absence of both cervix and uterus; Z79.899 Other long term (current) drug therapy
CPT/HCPCS: 36415; 73620; 80048; 85025; 99284